=== PATIENT | female | born 1980 | race Caucasian/White ===

== ENCOUNTER 2016-03-15 19:46 | Emergency (ER) | payer SELFPAY ==
[~2016-03-15] VITALS: Ht 160 cm; Wt 95.5 kg
[~2016-03-15 19:46] MED LIST: DIAZ-90 PO; IBUP800T25 PO
[2016-03-15 20:01] VITALS: Ht 160 cm; Wt 95.5 kg
[2016-03-15] MEDS ORDERED: DIAZEPAM 5 MG TAB PO ONE (22:00)
--- NOTE | 2016-03-15 22:29 | RADRPT ---
PROCEDURE: US DVT. CLINICAL INDICATION: Left lower extremity pain and swelling. TECHNIQUE: Multiple longitudinal and transverse images of the left lower extremity veins were obta ined with hammond scale and color Doppler imaging. 2D grayscale measurements with compression, color D oppler flow, and augmentation was performed. The calf veins were interrogated as well. COMPARISON: No prior studies are available for comparison. FINDINGS: The left common femoral, superficial femoral and popliteal veins are normally compressible throughou t. Color flow demonstrates normal filling of the vessel. Normal waveforms are visualized and there is normal response to augmentation. The calf veins are visualized and are equally unremarkable. IMPRESSION: 1. No evidence of a deep vein thrombosis involving the left lower extremity. RPTAT: HH .Reuben Galdamez MD, MD Date Time Electronically viewed and signed by .Reuben Galdamez MD, MD on 03/15/2016 22:29 .N/
[2016-03-15] MEDS ORDERED: KETOROLAC 30 MG INJ IM STA (22:44)
[2016-03-15] MEDS ORDERED: CYCL-319 PO (22:48)
[2016-03-15] MEDS ORDERED: IBUP-1542 PO (22:48)
--- NOTE | 2016-03-15 22:51 | ERA ---
ER Documentation Chief Complaint Date/Time DATE: 03/15/16 TIME: 22:51 Chief Complaint back pain/left leg swelling x 3 weeks HPI This is a 35-year-old female presenting to the emergency room complaining of bilateral lower lumbar back pain for the past 3 weeks and left calf pain for the past 3 days. Patient rates the pain moderate in severity. Patient states that she has tried ibuprofen at 4 PM without any relief. Patient denies any other medications. Denies any recent travel, surgeries or oral contraceptives. ROS All systems reviewed and are negative except as per history of present illness. Medications Home Meds Active Scripts Cyclobenzaprine Hcl* (Cyclobenzaprine Hcl*) 10 Mg Tablet, 10 MG PO TID, #15 TAB Prov:CAMILLA GUZMANC 03/15/16 Ibuprofen* (Motrin*) 600 Mg Tab, 600 MG PO Q6H Y for PAIN AND OR ELEVATED TEMP, #30 TAB Prov:CAMILLA GUZMANC 03/15/16 Diazepam* (Valium*) 5 Mg Tablet, 5 MG PO Q8 for MUSCLE SPASMS, #10 TAB Prov:CAMILLA GUZMANC 08/20/15 Ibuprofen* (Motrin*) 800 Mg Tab, 800 MG PO Q6H Y for PAIN AND OR ELEVATED TEMP, #30 TAB Prov:CAMILLA GUZMAN-C 08/20/15 Allergies Allergies: Coded Allergies: Penicillins (Verified Allergy, Unknown, RASH, 09/30/13) PMhx/Soc History of Surgery: Yes () Anesthesia Reaction: No Hx Neurological Disorder: No Hx Respiratory Disorders: No Hx Cardiac Disorders: No Hx Psychiatric Problems: No Hx Miscellaneous Medical Probl: Yes (Eczema) Hx Alcohol Use: No Hx Substance Use: No Hx Tobacco Use: No Smoking Status: Never smoker Physical Exam Vitals Vital Signs Date Time Temp Pulse Resp B/P Pulse Ox O2 Delivery O2 Flow Rate FiO2 03/15/16 20:01 98.3 64 20 116/64 99 Physical Exam GENERAL: WD/WN, in no apparent distress, non-toxic appearing HENT: NC/AT EYES: Conjunctiva normal NECK: Supple PULM: Normal labored breathing CV: Good capillary refill GI: Non-distended, no guarding BACK: no deformities noted, normal spinal curvature, TTP on lumbar region, non- tender on spine midline EXT: No clubbing, cyanosis, or edema NEURO: Moves on all fours, sensation intact, normal gait SKIN: Thickened skin and skin discolorations bilateral calf, no swelling noted, no pitting edema PSYCH: Normal mood Results 24 hrs Current Medications Medications (Trade) Dose Ordered Sig/Shayy Route PRN Reason Start Time Stop Time Status Last Admin Dose Admin Diazepam (Valium) 10 mg ONCE ONCE PO 03/15/16 22:00 03/15/16 22:01 DC 03/15/16 21:56 Ketorolac Tromethamine (Toradol) 30 mg ONCE STAT IM 03/15/16 22:44 03/15/16 22:46 DC Procedures/MDM This is a 35-year-old female presenting to the emergency room complaining of lumbar back pain for the past 3 weeks likely due to lumbar and left lower calf pain for the past 3 days likely due to peripheral vascular disease. P low suspicion for spinal abscess, vertebral fracture, cauda equina syndrome, spinal stenosis due to physical examination. Low suspicion for DVT. Patient was given Valium and Toradol in the ED. An ultrasound of the left lower extremity was done and did not show any evidence of deep vein thrombosis. I discussed the patient that she needs to follow-up with her primary care physician tomorrow for peripheral vascular disease. Prescriptions ibuprofen and Flexeril was given to patient, discussed to return to the ED if not improving as expected or follow-up with a primary care physician. Patient understood and agreed with this plan. Patient was hemodynamically and neurovascularly intact for disposition Departure Diagnosis: Primary Impression: Back pain Qualified Code: M54.5 - Chronic bilateral low back pain without sciatica Additional Impressions: Leg pain Qualified Code: M79.605 - Pain of left lower extremity PAD (peripheral artery disease) Condition: Stable Patient Instructions: Peripheral Vascular Disease, Back Care Tips, Back Pain ( Acute Or Chronic), Peripheral Vascular Disease Referrals: NO PRIMARY,CARE PHYSICIAN (PCP) [facility] ([facility]) Usted se us hecho un examen mdico de control que le indica que no est en damien condicin que requiera tratamiento urgente en el Departamento de Emergencia. Un estudio ms profundo y el tratamiento de parson condicin pueden esperar sin ningn riesgo hasta que usted sea atendida/o en el consultorio de parson mdico o damien cl la nena. Es responsabilidad suya arreglar damien aleena para el seguimiento del leslee. MANEJO DE CONDICIONES NO URGENTES EN EL FUTURO 1) Si usted tiene un mdico de atencin primaria: Usted debera llamar a parson mdico de atencin primaria antes de venir al departamento de emergencia. Despus de las horas de consultorio, parson doctor o parson asociado/a est disponible por telfono. El mdico o enfermero de ayad en el servicio telefnico puede asesorarle por saul medio para atender el problema, o leslee contrario se puede programar damien aleena. 2) Si usted no tiene un mdico de atencin primaria: Llame al mdico o clnica de referencia que aparece abajo laurie las horas de consultorio para hacer damien aleena para que le vean. CLINICAS: [facility] [phone] [facility] [facility] [phone] [facility]. [facility] [phone] [facility] [place] [id number] [phone] [facility]. [place] [id number] [phone] [facility]. [phone] [address] Additional Instructions: Visite a aprson mdico maana para un EXAMEN.Regrese a estas instalaciones si no se mejora anish esperbamos o anish le dijimos. [place] toda la medicina oniel y anish se le indic. Regrese a estas instalaciones si no se mejora anish esperbamos o anish le dijimos. CAMILLA GUZMAN-C Mar 15, 2016 22:51
== END 2016-03-15 23:19 | disposition home or self-care (01) ==
LOC: FTE 19:46
DX: M54.5 Low back pain (principal); M79.605 Pain in left leg; I73.9 Peripheral vascular disease, unspecified
CPT/HCPCS: 93971; 96372; 99285; J1885